=== PATIENT | female | born 1955 | race Caucasian/White ===

== ENCOUNTER 2016-05-04 09:37 | Emergency (ER) | payer BC ==
[2016-05-04 10:00] VITALS: BP 154/70
--- NOTE | 2016-05-04 10:24 | UC ---
Head Injury HPI - HPI Summary HPI Summary: SLIPPED ON THE ICE AND HIT THE BACK OF HER HEAD ON THE GROUND 2 DAYS AGO. GOT A LUMP ON THE BACK OF HER HEAD THAT IS NOW RESOLVED. NO LOC. DENIES ANY VISUAL CHANGES. NO NAUSEA, DIZZINESS, PHOTOPHOBIA OR CONFUSION. NO RAMESH. JUST THOUGHT SHE SHOULD COME GET IT CHECKED OUT. - History Of Current Complaint Chief Complaint: UCHeadInjury Stated Complaint: HEAD INJURY Time Seen by Provider: 05/04/16 09:53 Hx Obtained From: Patient Onset/Duration: Sudden Onset, Lasting Days, Resolved Severity Currently: None Severity Initially: Mild Pain Intensity: 0 Pain Scale Used: 0-10 Numeric Aggravating Factor(s): Nothing Alleviating Factor(s): Nothing Associated Signs And Symptoms: Positive: Negative - Allergies/Home Medications Allergies/Adverse Reactions: Allergies Allergy/AdvReac Type Severity Reaction Status Date / Time No Known Allergies Allergy Verified 09/10/13 12:57 Home Medications: Home Medications Wapyovy-Jebsticbwyfbw-Fsnbaurr [Excedrin Extra Strength 250-250-65 mg] 1 tab PO PRN 05/04/16 [History] PMH/Surg Hx/FS Hx/Imm Hx Endocrine History Of: Denies: Diabetes Cardiovascular History Of: Reports: Hypertension Denies: Congestive Heart Failure GI/ History Of: Reports: Kidney Stones - RT Cancer History Of: Denies: Breast Cancer - Surgical History Surgical History: Yes Surgery Procedure, Year, and Place: tubal ligation, carpal tunnel bilateral - Family History Known Family History: Positive: Cardiac Disease, Hypertension - Social History Alcohol Use: Weekly Substance Use Type: None Smoking Status (MU): Heavy Every Day Tobacco Smoker Type: Cigarettes Amount Used/How Often: 1/2 ppd Length of Time of Smoking/Using Tobacco: started at age 17 Have You Smoked in the Last Year: Yes Review of Systems Constitutional: Negative Eyes: Negative ENT: Negative Respiratory: Negative Cardiovascular: Negative Gastrointestinal: Negative Musculoskeletal: Negative Neurological: Negative All Other Systems Reviewed And Are Negative: Yes Physical Exam Triage Information Reviewed: Yes Appearance: Well-Appearing, No Pain Distress, Well-Nourished Vital Signs: Initial Vital Signs Temp 99.2 F 05/04/16 09:53 Pulse 91 05/04/16 09:53 Resp 16 05/04/16 09:53 BP 154/70 05/04/16 09:53 Pulse Ox 100 05/04/16 09:53 Vital Signs Reviewed: Yes Eyes: Positive: Conjunctiva Clear ENT: Positive: Hearing grossly normal, Pharynx normal, TMs normal Neck: Positive: Supple, Nontender, No Lymphadenopathy Respiratory Exam: Normal Cardiovascular Exam: Normal Abdomen Description: Positive: Soft Musculoskeletal: Positive: No Edema Neurological: Positive: Alert, Other: - CN II-XII GROSSLY INTACT BILATERALLY. NEG PRONATOR DRIFT. NEGATIVE ROMBERG. FINGER TO NOSE INTACT BILATERALLY. HEEL TO BLAND INTACT BILATERALLY. HEEL TO TOE INTACT BILATERALLY. RAPID ALTERNATING MVMTS INTACT. 5/5 STRENGTH Psychological: Positive: Age Appropriate Behavior Skin: Negative: rashes Head Injury Course/Dx - Course Course Of Treatment: NO CONCUSSIVE SX. NO ACUTE INTERVENTION REQUIRED. - Differential Dx/Diagnosis Provider Diagnoses: HEAD INJURY Discharge - Discharge Plan Condition: Stable Disposition: HOME Patient Education Materials: Head Injury (ED) Referrals: Willard Alvarado MD [Medical Doctor] - If Needed Additional Instructions: NO EVIDENCE OF CONCUSSIVE SYMPTOMS ON EXAM TODAY. NO NEED FOR ANY ACUTE INTERVENTION. GO TO THE ER WITHOUT FAIL IF YOU DEVELOP UNEQUAL PUPILS, VISUAL DISTURBANCE, GAIT INSTABILITY, SPEECH DIFFICULTY, NAUSEA/VOMITING, WORSENING HEADACHE, DIZZINESS, CONFUSION, WEAKNESS OR ANY OTHER CONCERNING SYMPTOMS.
== END 2016-05-04 10:35 | disposition home or self-care (01) ==
LOC: UCEAST 09:37
DX: S09.90XA Unspecified injury of head, initial encounter (principal); W00.0XXA Fall on same level due to ice and snow, initial encounter; Y93.9 Activity, unspecified; Y92.9 Unspecified place or not applicable; F17.210 Nicotine dependence, cigarettes, uncomplicated
CPT/HCPCS: 99211; G0463

== ENCOUNTER 2017-02-21 10:48 | Emergency (ER) | payer BC ==
[2017-02-21 11:06] VITALS: BP 162/63
--- NOTE | 2017-02-21 11:37 | UC ---
Throat Pain/Nasal Luke HPI - HPI Summary HPI Summary: Sore throat chills, ear plugged on off for 5 days - History of Current Complaint Chief Complaint: UCRespiratory Stated Complaint: SINUS COMPLAINT Time Seen by Provider: 02/21/17 11:31 Hx Obtained From: Patient ?: No Onset/Duration: Gradual Onset, Lasting Days - 5 Severity: Moderate Pain Intensity: 5 Cough: Nonproductive Associated Signs & Symptoms: Positive: Sinus Discomfort, Nasal Discharge - Allergies/Home Medications Allergies/Adverse Reactions: Allergies Allergy/AdvReac Type Severity Reaction Status Date / Time No Known Allergies Allergy Verified 02/21/17 10:56 Home Medications: Home Medications Wfgrdal-Dswvkdphjibzz-Gijohvxk [Excedrin Extra Strength 250-250-65 mg] 1 tab PO PRN 02/21/17 [History] PMH/Surg Hx/FS Hx/Imm Hx Previously Healthy: No Cardiovascular History: Hypertension - Surgical History Surgical History: Yes Surgery Procedure, Year, and Place: tubal ligation, carpal tunnel bilateral - Family History Known Family History: Positive: Cardiac Disease, Hypertension - Social History Occupation: Retired Lives: With Family Alcohol Use: Occasionally Substance Use Type: None Smoking Status (MU): Heavy Every Day Tobacco Smoker Type: Cigarettes Amount Used/How Often: 1/2 ppd Length of Time of Smoking/Using Tobacco: started at age 17 Have You Smoked in the Last Year: Yes Household Exposure Type: Cigarettes - Immunization History Most Recent Influenza Vaccination: NOV 2016 Review of Systems Constitutional: Negative Skin: Negative Eyes: Negative ENT: Sore Throat, Ear Ache, Nasal Discharge, Sinus Congestion Respiratory: Cough Cardiovascular: Negative Gastrointestinal: Negative Genitourinary: Negative Motor: Negative Neurovascular: Negative Musculoskeletal: Negative Neurological: Negative Psychological: Negative Is Patient Immunocompromised?: No All Other Systems Reviewed And Are Negative: Yes Physical Exam Triage Information Reviewed: Yes Appearance: Well-Appearing, No Pain Distress, Well-Nourished Vital Signs: Initial Vital Signs Temp 98.3 F 02/21/17 10:57 Pulse 79 02/21/17 10:57 Resp 18 02/21/17 10:57 BP 162/63 02/21/17 10:57 Pulse Ox 100 02/21/17 10:57 Vital Signs Reviewed: Yes Eye Exam: Normal Eyes: Positive: Conjunctiva Clear ENT Exam: Normal ENT: Positive: Normal ENT inspection, Hearing grossly normal, Pharynx normal, Nasal congestion, TMs normal - left, TM red - right, Sinus tenderness, Uvula midline. Negative: Tonsillar exudate, Trismus, Muffled voice, Hoarse voice Dental Exam: Normal Neck exam: Normal Neck: Positive: Supple, Nontender, No Lymphadenopathy Respiratory Exam: Normal Respiratory: Positive: Chest non-tender, Lungs clear, Normal breath sounds, No respiratory distress, No accessory muscle use Cardiovascular Exam: Normal Cardiovascular: Positive: RRR, No Murmur, Pulses Normal, Brisk Capillary Refill Musculoskeletal Exam: Normal Musculoskeletal: Positive: Strength Intact, ROM Intact, No Edema Neurological Exam: Normal Neurological: Positive: Alert, Muscle Tone Normal Psychological Exam: Normal Skin Exam: Normal Throat Pain/Nasal Course/Dx - Course Assessment/Plan: flonase amoxicillin, increase fluids follow with pcp - Differential Dx/Diagnosis Provider Diagnoses: Right otitis serrous, Hypertension in poor control Discharge - Discharge Plan Condition: Stable Disposition: HOME Prescriptions: Amoxicillin PO (*) [Amoxicillin 875 MG (*)] 875 mg PO BID #20 tab Fluticasone NASAL SPRAY 50MCG* [Flonase NASAL SPRAY 50MCG*] 2 spray BOTH NARES DAILY #1 btl Patient Education Materials: Hypertension (ED), Serous Otitis Media (ED) Referrals: [facility] [Outside] - 1 Week
== END 2017-02-21 12:09 | disposition home or self-care (01) ==
LOC: UCCORT 10:48
DX: H65.91 Unspecified nonsuppurative otitis media, right ear (principal); I10 Essential (primary) hypertension; F17.210 Nicotine dependence, cigarettes, uncomplicated
CPT/HCPCS: 99212; G0463

== ENCOUNTER 2018-06-10 08:59 | Emergency (ER) | payer BC ==
--- OUTSIDE RECORDS SUMMARY | 2018-06-10 09:15 | XMS REPORT | Continuity of Care Document ---
:1955 External Reference #:[id number] Author Name Zora Lopez Care Team Providers Name Role Phone Margarita Verma MD Primary Care Physician Unavailable Payers Date Identification Numbers Payment Provider Subscriber Policy Number: [id number] [employer]ets Sandy Carr PayID: [id number] [address] [address] [place] [address] Advance Directives Description No Information Available Problems Date Description Provider Status Onset: 05/19/2017 Essential hypertension Darryl Mcghee NP Active Family History Date Family Member(s) Observation Comments Father due to [place] () - at 39 Mother No Current Problems 82 Siblings 3 1 sister 2 brothers Social History Type Date Description Comments Sex Unknown Marital Status ETOH Use Currently consumes alcohol Tobacco Use Start: Unknown End: Patient is a former smoker Unknown Smoking Status Reviewed: 05/30/18 Patient is a former smoker Exercise Type/Frequency Exercises regularly Allergies, Adverse Reactions, Alerts Date Description Reaction Status Severity Comments 05/13/2017 Bee Sting Active Medications Medication Date Status Form Strength Qnty SIG Indications Ordering Provider Lisinopril 01/18/ Active Tablets 20mg 90tabs 1 03/29 by Darryl 2018 mouth every Taz, VOIP TECHNICIAN day D3 High / Active Capsules 2000Unit take one Unknown Potency 0000 capsule/tab let daily by mouth Aspirin / Active Tablets DR 81mg 1 by mouth Unknown 0000 every day Nicotine 11/17/ Hx Patches 14mg/24HR 14unit one patch F17.210 Darryl 2018 - 24HR s daily for 2 ABDIAZIZ Mcghee 2018 Nicotine 10/03/ Hx Patches 21mg/24HR 28unit one patch F17.210 Darryl 2018 - 24HR s daily x 6 ABDIAZIZ Mcghee 2017 Lisinopril 08/11/ Hx Tablets 10mg 90tabs 1 by mouth Darryl 2017 - every day ABDIAZIZ Mcghee 2017 Nicotrol 08/11/ Hx Inhaler 10mg 168uni one F17.210 Darryl 2018 - ts cartridge ABDIAZIZ Mcghee -16 times 2018 daily Immunizations CPT Code Status Date Vaccine Lot # [id number] Given 01/18/2018 Influenza Virus Vaccine, Quadrivalent, Split, [id number] Preservative Free Vital Signs Date Vital Result Comment 05/30/2018 9:43am Height 63.25 inches 5'3.25" Weight 159.50 lb Heart Rate 80 /min BP Systolic 163 mmHg 170/74 home cuff BP Diastolic 74 mmHg 170/74 home cuff BP Systolic Recheck 158 mmHg BP Diastolic Recheck 70 mmHg Body Temperature 98.1 F O2 % BldC Oximetry 98 % BMI (Body Mass Index) 28.0 kg/m2 02/15/2018 8:41am Height 63.25 inches 5'3.25" Weight 153.00 lb Heart Rate 90 /min BP Systolic 139 mmHg BP Diastolic 72 mmHg BP Systolic Recheck 126 mmHg Home cuff: 138/62 BP Diastolic Recheck 70 mmHg Home cuff: 138/62 O2 % BldC Oximetry 98 % BMI (Body Mass Index) 26.9 kg/m2 01/18/2018 8:28am Height 63.25 inches 5'3.25" Weight 150.00 lb Heart Rate 78 /min BP Systolic Sitting 156 mmHg home machine 176/75 BP Diastolic Sitting 75 mmHg home machine 176/75 BP Systolic Recheck 154 mmHg BP Diastolic Recheck 80 mmHg O2 % BldC Oximetry 98 % BMI (Body Mass Index) 26.4 kg/m2 11/17/2017 8:45am Height 63.25 inches 5'3.25" Weight 145.00 lb Heart Rate 73 /min BP Systolic Sitting 165 mmHg BP Diastolic Sitting 74 mmHg BP Systolic Recheck 155 mmHg BP Diastolic Recheck 80 mmHg O2 % BldC Oximetry 100 % BMI (Body Mass Index) 25.5 kg/m2 08/11/2017 9:31am Height 63.25 inches 5'3.25" Weight 141.75 lb Heart Rate 88 /min BP Systolic 120 mmHg BP Diastolic 64 mmHg Body Temperature 98.3 F O2 % BldC Oximetry 97 % BMI (Body Mass Index) 24.9 kg/m2 05/13/2017 10:58am Height 63.5 inches 5'3.50" Weight 150.50 lb Heart Rate 78 /min BP Systolic 140 mmHg BP Diastolic 72 mmHg BP Systolic Recheck 144 mmHg BP Diastolic Recheck 66 mmHg Body Temperature 98.2 F O2 % BldC Oximetry 98 % BMI (Body Mass Index) 26.2 kg/m2 08/04/2010 9:19am Height 64 inches 5'4" Weight 140.00 lb Heart Rate 70 /min BP Systolic 152 mmHg BP Diastolic 80 mmHg BMI (Body Mass Index) 24.0 kg/m2 Results Test Date Facility Test Result H/L Range Note Laboratory test 04/24/2018 [facility] Cytology SEE RESULT [address] [place] [address] [phone] Lipid Profile 08/02/2017 [facility] Triglycerides 49 mg/dL 2, 3 (Trig/Chol/HDL) [address] [place] [address] [phone] Cholesterol 265 mg/dL 4 HDL Cholesterol 97.6 mg/dL 5 LDL Cholesterol 158 mg/dL 6 Comp Metabolic Panel 08/02/2017 [facility] Sodium 139 mmol/L N 139-[address] [place] [address] [phone] Potassium 4.5 mmol/L N 3.5-5.0 Chloride 104 mmol/L N 101-111 Co2 Carbon Dioxide 27 mmol/L N 22-32 Anion Gap 8 mmol/L N 2-11 Glucose 101 mg/dL High 70-100 Blood Urea Nitrogen 18 mg/dL N 6-24 Creatinine 0.78 mg/dL N 0.51-0.95 BUN/Creatinine Ratio 23.1 High 8-20 Calcium 9.6 mg/dL N 8.6-10.3 Total Protein 6.9 g/dL N 6.4-8.9 Albumin 4.3 g/dL N 3.2-5.2 Globulin 2.6 g/dL N 2-4 Albumin/Globulin Ratio 1.7 N 1-3 Total Bilirubin 0.40 mg/dL N 0.2-1.0 Alkaline Phosphatase 71 U/L N 34-104 Alt 16 U/L N 7-52 Ast 15 U/L N 13-39 Egfr Non- 74.6 >60 Egfr 95.9 >60 7 Laboratory 08/02/2017 [facility] Hepatitis C Nonreactive Nonreactive 8 test [address] Antibody [place], [place] [id number] [phone] 1 SEE RESULT BELOW Name: SANDY CARR : [address]: Tabitha Her MD Acct: [id number] Unit: [id number] AGE: 62 Location: [facility] Re04/24/18 SEX: F Status: REG REF SPEC: [id number] LILIYA: 04/24/18 [facility] DR: Tabitha Her MD REQ: [id number] RECD: 04/24/18 STATUS: SULEMA BARBOZA DR: Darryl Mcghee VOIP TECHNICIAN _ ORDERED: TP IMAGE ANALYS, HPV/Thin Prep COMMENTS: [id number] Negative for Intraepithelial lesion or Malignancy Date Time Test Result Flag (u) Normal Range 04/24/18 0850 @ HPV RNA Negative Negative @ @ The high-risk HPV types detected by the assay include: 16, @ 18, 31, 33, 35, 39, 45, 51, 52, 56, 58, 59, 66, and 68. A. Ectocervical/Endocervical Specimen Adequacy: Satisfactory of evaluation Transformation zone component cannot be definitely identified due to presence of atrophy or other hormonal changes Patient Information: HPV: High risk HPV RNA testing regardless of pap results. Actual Specimen Date: 04/24/18 LMP If Unknown: 2006 Date of Last Specimen: 01/25/17 Post Menopausal?: Y Signed by and Reported on: ZAIN Alvaraod(ASCP) 1229 This Pap test was evaluated with the assistance of the CookItFor.UsPrep Test Imaging System. Due to cytologic findings at the watch crystal cutter microscope, comprehensive manual rescreening by a Cd Technician may be required. The Pap Smear is a screening test designed to aid in the detection of premalignant and malignant conditions of the uterine cervix. It is not a diagnostic procedure and should not be used as the sole means of detecting cervical cancer. Both false- positive and false- negative reports do occur. Depending on your risk status, a Pap smear should be obtained and evaluated every 1-3 years. END OF REPORT DEPARTMENT OF PATHOLOGY, [address] [place] [address] Alexei Vivas M.D. Director [facility] # [id number] 2 ASCVD 9.1%-rjz 3 Desirable: <150 Borderline High: 150-199 High: 200-499 Very High: >500 4 Desirable: <200 Borderline High: 200-239 High: >239 5 Low: <40 Desirable: 40-60 High: >60 6 Desirable: <100 Near Optimal: 100-129 Borderline High: 130-159 High: 160-189 Very High: >189 7 Because ethnic data is not always readily available, this report includes an eGFR for both -Americans and non- Americans. The National Kidney Disease Education Program (NKDEP) does not endorse the use of the MDRD equation for patients that are not between the ages of 18 and 70, are , have extremes of body size, muscle mass, or nutritional status, or are non- or non-. According to the National Kidney Foundation, irrespective of diagnosis, the stage of the disease is based on the level of kidney function: Stage Description GFR(mL/min/1.73 m(2)) 1 Kidney damage with normal or decreased GFR 90 2 Kidney damage with mild decrease in GFR 60-89 3 Moderate decrease in GFR 30-59 4 Severe decrease in GFR 15-29 5 Kidney failure <15 (or dialysis) 8 FASTING 10 HOUR Prior to PE in July Procedures Date Code Description Status 08/16/2017 55924596 Mammogram Completed 06/27/2015 [id number] Mammogram Completed 06/17/2015 [id number] Colonoscopy Completed 08/25/2010 19824 Rad Exam; Wrist Limited, 2 Views Completed 08/04/2010 20999 CLST TRMT Distal Radial FX Completed 06/06/2008 25148 Endoscopy Wrist Surg W/Release Of Transverse Carpal Completed Ligament 04/25/2008 41458 Endoscopy Wrist Surg W/Release Of Transverse Carpal Completed Ligament Encounters Type Date Location Provider Dx Diagnosis Office Visit 02/15/2018 [facility] Darryl Mcghee NP I10 Essential (primary ) 8:40a Medicine - hypertension [place] Office Visit 01/18/2018 [facility] Darryl Mcghee NP I10 Essential (primary ) 8:40a Medicine - hypertension [place] F17.210 Nicotine dependence, cigarettes, uncomplicated Z23 Encounter for immunization Office Visit 11/17/2017 8:40a [facility] Darryl Taz, F17.210 Nicotine Medicine - VOIP TECHNICIAN dependence, [place] cigarettes, uncomplicated I10 Essential (primary) hypertension Office Visit 08/11/2017 9:40a [facility] Darryl Mcghee, Z00.00 [facility] for Medicine - VOIP TECHNICIAN general adult [place] medical exam w/o abnormal findings I10 Essential (primary) hypertension E78.5 Hyperlipidemia, unspecified F17.210 Nicotine dependence, cigarettes, uncomplicated Z12.31 Encntr screen mammogram for malignant neoplasm of breast Office Visit 05/13/2017 11:00a [facility] Internal Darryl Mcghee, I10 Essential ( primary) Medicine - VOIP TECHNICIAN hypertension [place] Z13.220 Encounter for screening for lipoid disorders Z11.59 Encounter for screening for other viral diseases Office Visit 04/15/2008 3:00p [facility] Clarke Hinojosa 354.0 [facility] [place] Syndrome Plan of Treatment Future Appointment(s):08/08/2018 11:00 am - Darryl Mcghee NP at [facility]05/30/2018 - Darryl Mcghee NPI10 Essential (primary) hypertensionComments:Your blood pressure is elevated today. I have increased the lisinopril to 30mg. Take 1 1/2 tablets daily. Continue to check your blood pressure. Continue with the plan to go back to [employer]. Losing a little weight will likely lead to a reduction in your blood pressure,.Follow up:PE July
[2018-06-10 09:20] VITALS: BP 144/56
[2018-06-10] MEDS ORDERED: Fluorescein Sodium TOPICAL* 1 MG TEST STRIP OPHTHALMIC ONE (09:57)
--- NOTE | 2018-06-10 10:17 | UC ---
Eye Complaint HPI - HPI Summary HPI Summary: 62 yo female with FB sensation x 4 days Right eye has been rubbing her eye now with photophobia - History of Current Complaint Chief Complaint: UCEye Stated Complaint: EYE IRRITATION Time Seen by Provider: 06/10/18 09:51 Hx Obtained From: Patient Onset/Duration: Sudden Onset Timing: Constant Severity Initially: Mild Severity Currently: Moderate Pain Intensity: 0 Pain Scale Used: 0-10 Numeric Character: Foreign Body Sensation Associated Signs And Symptoms: Positive: Photophobia, Drainage (Clear) Eyes: 2 - flourscein staining defect 3 - FB under lower lid - Allergies/Home Medications Allergies/Adverse Reactions: Allergies Allergy/AdvReac Type Severity Reaction Status Date / Time No Known Allergies Allergy Verified 06/10/18 09:12 Home Medications: Home Medications Aspirin [Aspir-Low] 1 tab DAILY 06/10/18 [History Confirmed 06/10/18] PMH/Surg Hx/FS Hx/Imm Hx Previously Healthy: Yes Cardiovascular History: Hypertension - Surgical History Surgical History: Yes Surgery Procedure, Year, and Place: tubal ligation, carpal tunnel bilateral - Family History Known Family History: Positive: Cardiac Disease, Hypertension - Social History Alcohol Use: Occasionally Substance Use Type: None Smoking Status (MU): Former Smoker Type: Cigarettes Amount Used/How Often: 1/2 ppd Length of Time of Smoking/Using Tobacco: started at age 17 Have You Smoked in the Last Year: Yes When Did the Patient Quit Smoking/Using Tobacco: 10/23/17 Household Exposure Type: Cigarettes - Immunization History Most Recent Influenza Vaccination: NOV 2016 Review of Systems All Other Systems Reviewed And Are Negative: Yes Constitutional: Positive: Negative Skin: Positive: Negative Eyes: Positive: Eye Redness, Photophobia ENT: Positive: Negative Respiratory: Positive: Negative Cardiovascular: Positive: Negative Gastrointestinal: Positive: Negative Genitourinary: Positive: Negative Motor: Positive: Negative Neurovascular: Positive: Negative Musculoskeletal: Positive: Negative Neurological: Positive: Negative Psychological: Positive: Negative Physical Exam Triage Information Reviewed: Yes Appearance: Well-Appearing, No Pain Distress, Well-Nourished Vital Signs: Initial Vital Signs Temp 97.1 F 06/10/18 09:13 Pulse 74 06/10/18 09:13 Resp 16 06/10/18 09:13 BP 144/56 06/10/18 09:13 Pulse Ox 100 06/10/18 09:13 Vital Signs Reviewed: Yes Eyes: Positive: Conjunctiva Inflamed - R, Other: - see image ENT: Positive: Hearing grossly normal. Negative: Nasal congestion, Nasal drainage, Trismus, Muffled voice, Hoarse voice, Dental tenderness Neck: Positive: Supple Respiratory: Positive: Lungs clear, Normal breath sounds, No respiratory distress, No accessory muscle use Cardiovascular: Positive: RRR, No Murmur Musculoskeletal: Positive: No Edema Neurological: Positive: Alert Psychological Exam: Normal Skin Exam: Normal Procedures - Eye Procedure Right Eye FB Removal: removal w/ cotton swab - right lower lid Eye Complaint Course/Dx - Course Course Of Treatment: markedly improved after FB removed - Differential Dx/Diagnosis Provider Diagnosis: Corneal abrasion, right Discharge - Sign-Out/Discharge Documenting (check all that apply): Patient Departure All imaging exams completed and their final reports reviewed: No Studies - Discharge Plan Condition: Stable Disposition: HOME Prescriptions: Polymyx/Trimethoprim OPTH* [Polytrim OPHTH*] 1 - 2 drop RIGHT EYE QID #1 btl Patient Education Materials: Corneal Abrasion (ED) Referrals: Darryl Mcghee NP [Primary Care Provider] - Additional Instructions: see your eye doc in 2 days - Billing Disposition and Condition Condition: STABLE Disposition: Home
== END 2018-06-10 10:14 | disposition home or self-care (01) ==
LOC: UCCORT 08:59
DX: T15.11XA Foreign body in conjunctival sac, right eye, initial encounter (principal); X58.XXXA Exposure to other specified factors, initial encounter; Y92.9 Unspecified place or not applicable; I10 Essential (primary) hypertension; Z79.82 Long term (current) use of aspirin; Z87.891 Personal history of nicotine dependence
CPT/HCPCS: 67938; 99212; A9270-GY; G0463

== ENCOUNTER 2022-08-19 11:46 | Inpatient (IN) ==
[2022-08-20] MEDS ORDERED: Magnesium Hydroxide LIQ 30 ML UDC PO PRN (13:56)
[2022-08-20] MEDS ORDERED: Senna TAB 8.6 mg TAB PO PRN (13:56)
[2022-08-21] MEDS: Aspirin EC 81 mg TAB.EC (enteric coated) PO SCH (09:54)
[2022-08-21] MEDS: Cholecalciferol (VIT D3) 1,000 unit TAB PO SCH (09:54)
[2022-08-22] MEDS: Cholecalciferol (VIT D3) 1,000 unit TAB PO SCH (08:33)
[2022-08-22] MEDS: Aspirin EC 81 mg TAB.EC (enteric coated) PO SCH (08:33)
[2022-08-22 21:33] LABS: Urine Appearance Turbid; Urine Bilirubin Negative (Negative); Urine Blood 1+ (Negative); Urine Color Yellow; Urine Glucose Negative (Negative); Urine Ketones Negative (Negative); Urine Nitrite Negative (Negative); Urine Protein 1+(30 mg/dL) (Negative); Urine Specific Gravity 1.009 (1.002-1.030); Urine Urobilinogen Negative (Negative)
[2022-08-22 21:37] LABS: Urine Bacteria 3+ (Absent); Urine Red Blood Cell 2+(6-10/hpf) (Absent); Urine Squamous Epithelial Cell Present (Absent); Urine White Blood Cell 3+(>20/hpf) (Absent)
[2022-08-23 07:43] LABS: ALT 25 U/L (7-52); AST 19 U/L (13-39); Albumin/Globulin Ratio 1.1 (1-3); Alkaline Phosphatase 188 U/L (35-149); Anion Gap 5 mmol/L (2-16); Blood Urea Nitrogen 8 mg/dL (6-24); CO2 Carbon Dioxide 28 mmol/L (22-32); Calcium 9.1 mg/dL (8.6-10.3); Chloride 103 mmol/L (101-111); Globulin 2.8 g/dL (2-4); Glucose 119 mg/dL (70-100); Potassium 4.1 mmol/L (3.5-5.0); Sodium 136 mmol/L (135-145); Total Protein 5.8 g/dL (6.4-8.9)
[2022-08-23 08:52] LABS: Creatinine, Serum < 0.30 mg/dL (0.51-0.95); eGFR CKD-EPI 115.5 (>60)
[2022-08-23] MEDS: Cholecalciferol (VIT D3) 1,000 unit TAB PO SCH (08:56)
[2022-08-23] MEDS: Aspirin EC 81 mg TAB.EC (enteric coated) PO SCH (08:56)
[2022-08-23 09:08] LABS: ABS Basophils 0.1 10^3/uL (0.0-0.1); ABS Eosinophils 0.5 10^3/uL (0.0-0.5); ABS Lymphocytes 1.8 10^3/uL (1.0-4.8); ABS Monocytes 0.8 10^3/uL (0.0-0.9); ABS Neutrophils 4.4 10^3/uL (1.5-7.6); ABS Nucleated RBC 0.01 10^3/ul; Eosinophil % 6.4 %; Hematocrit 23.6 % (35-45); Hemoglobin 8.1 g/dL (11.5-14.3); Lymphocyte % 23.5 %; Mean Corpuscular Hgb Conc 34.5 g/dL (31-36); Mean Corpuscular Volume 92.7 fL (80-97); Mean Platelet Volume 7.2 fL (7.5-11.2); Nucleated Red Blood Cells % 0.1 /100 WBC (0.0-0.4); Platelet Count 347 10^3/uL (150-450); Red Blood Count 2.55 10^6/uL (3.63-4.92); Red Cell Distribution Width 18.1 % (12-17); White Blood Count 7.5 10^3/uL (3.8-11.8)
[2022-08-24] MEDS: Cholecalciferol (VIT D3) 1,000 unit TAB PO SCH (10:49)
[2022-08-24] MEDS: Aspirin EC 81 mg TAB.EC (enteric coated) PO SCH (10:49)
[2022-08-25] MEDS: Aspirin EC 81 mg TAB.EC (enteric coated) PO SCH (08:59)
[2022-08-25] MEDS: Cholecalciferol (VIT D3) 1,000 unit TAB PO SCH (09:00)
[2022-08-26] MEDS: Cholecalciferol (VIT D3) 1,000 unit TAB PO SCH (10:01)
[2022-08-26] MEDS: Aspirin EC 81 mg TAB.EC (enteric coated) PO SCH (10:01)
[2022-08-26] MEDS: Amoxicillin/Clavul 875/125 TAB (Augmentin 875 tab) PO SCH (21:03)
[2022-08-27] MEDS: Aspirin EC 81 mg TAB.EC (enteric coated) PO SCH (10:54)
[2022-08-27] MEDS: Amoxicillin/Clavul 875/125 TAB (Augmentin 875 tab) PO SCH (10:54)
[2022-08-27] MEDS: Cholecalciferol (VIT D3) 1,000 unit TAB PO SCH (10:54)
[2022-08-27] MEDS: Psyllium PAK PO SCH (11:06)
[2022-08-27] MEDS: Carbamide Peroxide 6.5% OTIC 15 ML BTL LEFT EAR SCH ×2 (14:22→22:01)
[2022-08-27] MEDS: Nitrofurantoin (monohydrate/macrocrystals) 100 mg CAP PO SCH (22:10)
[2022-08-28 08:20] LABS: ABS Basophils 0.1 10^3/uL (0.0-0.1); ABS Eosinophils 0.6 10^3/uL (0.0-0.5); ABS Lymphocytes 1.7 10^3/uL (1.0-4.8); ABS Monocytes 0.5 10^3/uL (0.0-0.9); ABS Neutrophils 3.3 10^3/uL (1.5-7.6); Hematocrit 26.4 % (35-45); Hemoglobin 9.3 g/dL (11.5-14.3); Lymphocyte % 27.7 %; Mean Corpuscular Hemoglobin 32.4 pg (27-33); Mean Corpuscular Hgb Conc 35.1 g/dL (31-36); Mean Corpuscular Volume 92.3 fL (80-97); Mean Platelet Volume 6.5 fL (7.5-11.2); Platelet Count 324 10^3/uL (150-450); Red Blood Count 2.86 10^6/uL (3.63-4.92); Red Cell Distribution Width 18.5 % (12-17); White Blood Count 6.2 10^3/uL (3.8-11.8)
[2022-08-28 08:37] LABS: ALT 20 U/L (7-52); AST 15 U/L (13-39); Albumin 3.3 g/dL (3.2-5.2); Albumin/Globulin Ratio 1.1 (1-3); Alkaline Phosphatase 156 U/L (35-149); Anion Gap 7 mmol/L (2-16); Blood Urea Nitrogen 5 mg/dL (6-24); CO2 Carbon Dioxide 25 mmol/L (22-32); Calcium 9.5 mg/dL (8.6-10.3); Chloride 104 mmol/L (101-111); Globulin 3.1 g/dL (2-4); Glucose 119 mg/dL (70-100); Potassium 3.8 mmol/L (3.5-5.0); Sodium 136 mmol/L (135-145); Total Protein 6.4 g/dL (6.4-8.9)
[2022-08-28 09:23] LABS: Creatinine, Serum < 0.30 mg/dL (0.51-0.95); eGFR CKD-EPI 115.5 (>60)
[2022-08-28] MEDS: Cholecalciferol (VIT D3) 1,000 unit TAB PO SCH (09:42)
[2022-08-28] MEDS: Nitrofurantoin (monohydrate/macrocrystals) 100 mg CAP PO SCH (09:42)
[2022-08-28] MEDS: Aspirin EC 81 mg TAB.EC (enteric coated) PO SCH (09:42)
[2022-08-28] MEDS ORDERED: Nitrofurantoin (monohydrate/macrocrystals) 100 mg CAP PO SCH (10:00)
[2022-08-28] MEDS: Psyllium PAK PO SCH (11:56)
[2022-08-28] MEDS: Carbamide Peroxide 6.5% OTIC 15 ML BTL LEFT EAR SCH ×2 (11:58→20:27)
[2022-08-28] MEDS: Ciprofloxacin 400mg IVPREMIX 400 MG/200 ML BAG IVPB SCH ×2 (13:23→23:38)
[2022-08-29] MEDS: Aspirin EC 81 mg TAB.EC (enteric coated) PO SCH (10:23)
[2022-08-29] MEDS: Cholecalciferol (VIT D3) 1,000 unit TAB PO SCH (10:23)
[2022-08-29] MEDS: Psyllium PAK PO SCH (10:24)
[2022-08-29] MEDS: Carbamide Peroxide 6.5% OTIC 15 ML BTL LEFT EAR SCH ×2 (10:24→21:24)
[2022-08-29] MEDS: Ciprofloxacin 400mg IVPREMIX 400 MG/200 ML BAG IVPB SCH ×2 (14:07→23:33)
[2022-08-30 06:52] LABS: ABS Basophils 0.1 10^3/uL (0.0-0.1); ABS Eosinophils 0.5 10^3/uL (0.0-0.5); ABS Lymphocytes 1.5 10^3/uL (1.0-4.8); ABS Monocytes 0.6 10^3/uL (0.0-0.9); ABS Neutrophils 4.2 10^3/uL (1.5-7.6); Eosinophil % 7.2 %; Hematocrit 25.3 % (35-45); Hemoglobin 8.8 g/dL (11.5-14.3); Mean Corpuscular Hemoglobin 32.3 pg (27-33); Mean Corpuscular Hgb Conc 34.9 g/dL (31-36); Mean Corpuscular Volume 92.6 fL (80-97); Mean Platelet Volume 6.8 fL (7.5-11.2); Nucleated Red Blood Cells % 0.1 /100 WBC (0.0-0.4); Platelet Count 335 10^3/uL (150-450); Red Blood Count 2.73 10^6/uL (3.63-4.92); Red Cell Distribution Width 18.9 % (12-17); White Blood Count 6.9 10^3/uL (3.8-11.8)
[2022-08-30 07:21] LABS: Albumin 3.1 g/dL (3.2-5.2); Calcium 9.4 mg/dL (8.6-10.3); Creatinine, Serum 0.36 mg/dL (0.51-0.95); Potassium 3.8 mmol/L (3.5-5.0); Total Bilirubin 0.3 mg/dL (0.2-1.0); Total Protein 6.1 g/dL (6.4-8.9); eGFR CKD-EPI 110.5 (>60)
[2022-08-30] MEDS ORDERED: Immune Globulin IV Order (CPOE ENTRY PROTOCOL) IV SCH (11:00)
[2022-08-30] MEDS: Cholecalciferol (VIT D3) 1,000 unit TAB PO SCH (13:02)
[2022-08-30] MEDS: Aspirin EC 81 mg TAB.EC (enteric coated) PO SCH (13:03)
[2022-08-30] MEDS: Psyllium PAK PO SCH (13:05)
[2022-08-30] MEDS: Ciprofloxacin 400mg IVPREMIX 400 MG/200 ML BAG IVPB SCH (13:06)
[2022-08-30] MEDS: Carbamide Peroxide 6.5% OTIC 15 ML BTL LEFT EAR SCH ×2 (15:50→20:18)
[2022-08-30] MEDS: [UNRECOGNIZED DRUG - MIXTURE] IV SCH (16:51)
[2022-08-31] MEDS: Ciprofloxacin 400mg IVPREMIX 400 MG/200 ML BAG IVPB SCH ×2 (00:02→14:45)
[2022-08-31] MEDS: Aspirin EC 81 mg TAB.EC (enteric coated) PO SCH (09:16)
[2022-08-31] MEDS: Cholecalciferol (VIT D3) 1,000 unit TAB PO SCH (09:16)
[2022-08-31] MEDS: Psyllium PAK PO SCH (09:17)
[2022-08-31] MEDS: Carbamide Peroxide 6.5% OTIC 15 ML BTL LEFT EAR SCH ×2 (16:17→20:33)
[2022-08-31] MEDS: [UNRECOGNIZED DRUG - MIXTURE] IV SCH (22:27)
[2022-09-01] MEDS: Ciprofloxacin 400mg IVPREMIX 400 MG/200 ML BAG IVPB SCH ×2 (00:02→11:51)
[2022-09-01] MEDS: Aspirin EC 81 mg TAB.EC (enteric coated) PO SCH (08:37)
[2022-09-01] MEDS: Cholecalciferol (VIT D3) 1,000 unit TAB PO SCH (08:37)
[2022-09-01] MEDS: Carbamide Peroxide 6.5% OTIC 15 ML BTL LEFT EAR SCH ×2 (08:43→20:55)
[2022-09-01] MEDS: Psyllium PAK PO SCH (08:47)
[2022-09-02] MEDS: Ciprofloxacin 400mg IVPREMIX 400 MG/200 ML BAG IVPB SCH ×2 (00:05→14:48)
[2022-09-02] MEDS ORDERED: Ondansetron ODT 4 mg TAB 4 MG TAB SL ONE (08:15)
[2022-09-02] MEDS: Carbamide Peroxide 6.5% OTIC 15 ML BTL LEFT EAR SCH ×2 (09:00→21:05)
[2022-09-02] MEDS: Aspirin EC 81 mg TAB.EC (enteric coated) PO SCH (13:03)
[2022-09-02] MEDS: Cholecalciferol (VIT D3) 1,000 unit TAB PO SCH (13:04)
[2022-09-02] MEDS: Psyllium PAK PO SCH (13:05)
[2022-09-03] MEDS: Ciprofloxacin 400mg IVPREMIX 400 MG/200 ML BAG IVPB SCH ×3 (00:30→23:45)
[2022-09-03] MEDS: Cholecalciferol (VIT D3) 1,000 unit TAB PO SCH (09:17)
[2022-09-03] MEDS: Aspirin EC 81 mg TAB.EC (enteric coated) PO SCH (09:17)
[2022-09-03] MEDS: Psyllium PAK PO SCH (10:05)
[2022-09-03] MEDS: Carbamide Peroxide 6.5% OTIC 15 ML BTL LEFT EAR SCH ×2 (10:05→22:05)
[2022-09-04] MEDS: Aspirin EC 81 mg TAB.EC (enteric coated) PO SCH (10:07)
[2022-09-04] MEDS: Cholecalciferol (VIT D3) 1,000 unit TAB PO SCH (10:07)
[2022-09-04] MEDS: Psyllium PAK PO SCH ×2 (10:08→10:23)
[2022-09-04] MEDS: Ciprofloxacin 400mg IVPREMIX 400 MG/200 ML BAG IVPB SCH (14:10)
[2022-09-04] MEDS: Carbamide Peroxide 6.5% OTIC 15 ML BTL LEFT EAR SCH ×2 (14:21→20:56)
[2022-09-05] MEDS ORDERED: Ondansetron ODT 4 mg TAB 4 MG TAB PO ONE (10:05)
[2022-09-05] MEDS: Aspirin EC 81 mg TAB.EC (enteric coated) PO SCH (11:19)
[2022-09-05] MEDS: Carbamide Peroxide 6.5% OTIC 15 ML BTL LEFT EAR SCH ×2 (11:23→21:02)
[2022-09-05] MEDS: Psyllium PAK PO SCH (11:24)
[2022-09-05] MEDS: Cholecalciferol (VIT D3) 1,000 unit TAB PO SCH (12:41)
[2022-09-06] MEDS: Ondansetron ODT 4 mg TAB 4 MG TAB PO PRN (04:58)
[2022-09-06 07:36] LABS: ABS Basophils 0.1 10^3/uL (0.0-0.1); ABS Eosinophils 0.1 10^3/uL (0.0-0.5); ABS Lymphocytes 1.4 10^3/uL (1.0-4.8); ABS Monocytes 0.4 10^3/uL (0.0-0.9); ABS Neutrophils 4.9 10^3/uL (1.5-7.6); Eosinophil % 1.7 %; Hematocrit 27.1 % (35-45); Hemoglobin 9.4 g/dL (11.5-14.3); Mean Corpuscular Hemoglobin 31.7 pg (27-33); Mean Corpuscular Hgb Conc 34.6 g/dL (31-36); Mean Corpuscular Volume 91.7 fL (80-97); Platelet Count 309 10^3/uL (150-450); Red Blood Count 2.96 10^6/uL (3.63-4.92); Red Cell Distribution Width 17.1 % (12-17); White Blood Count 6.9 10^3/uL (3.8-11.8)
[2022-09-06 07:46] LABS: Albumin 3.3 g/dL (3.2-5.2); Albumin/Globulin Ratio 0.7 (1-3); Calcium 9.5 mg/dL (8.6-10.3); Creatinine, Serum 0.47 mg/dL (0.51-0.95); Globulin 4.8 g/dL (2-4); Potassium 3.9 mmol/L (3.5-5.0); Total Bilirubin 0.5 mg/dL (0.2-1.0); Total Protein 8.1 g/dL (6.4-8.9); eGFR CKD-EPI 103.6 (>60)
[2022-09-06] MEDS: Cholecalciferol (VIT D3) 1,000 unit TAB PO SCH (10:12)
[2022-09-06] MEDS: Psyllium PAK PO SCH (10:12)
[2022-09-06] MEDS: Carbamide Peroxide 6.5% OTIC 15 ML BTL LEFT EAR SCH ×2 (10:12→21:46)
[2022-09-06] MEDS: Aspirin EC 81 mg TAB.EC (enteric coated) PO SCH (10:12)
[2022-09-07] MEDS: Psyllium PAK PO SCH (09:38)
[2022-09-07] MEDS: Carbamide Peroxide 6.5% OTIC 15 ML BTL LEFT EAR SCH ×2 (09:39→20:12)
[2022-09-07] MEDS: Aspirin EC 81 mg TAB.EC (enteric coated) PO SCH (09:39)
[2022-09-07] MEDS: Cholecalciferol (VIT D3) 1,000 unit TAB PO SCH (09:40)
[2022-09-07] MEDS: Ondansetron ODT 4 mg TAB 4 MG TAB PO PRN (14:52)
[2022-09-08] MEDS: Cholecalciferol (VIT D3) 1,000 unit TAB PO SCH (09:13)
[2022-09-08] MEDS: Aspirin EC 81 mg TAB.EC (enteric coated) PO SCH (09:13)
[2022-09-08] MEDS: Carbamide Peroxide 6.5% OTIC 15 ML BTL LEFT EAR SCH ×2 (09:36→20:51)
[2022-09-08] MEDS: Psyllium PAK PO SCH (09:37)
[2022-09-08] MEDS: Ondansetron ODT 4 mg TAB 4 MG TAB PO PRN (11:55)
[2022-09-09] MEDS: Cholecalciferol (VIT D3) 1,000 unit TAB PO SCH (07:43)
[2022-09-09] MEDS: Aspirin EC 81 mg TAB.EC (enteric coated) PO SCH (07:45)
[2022-09-09] MEDS: Psyllium PAK PO SCH (07:45)
[2022-09-09] MEDS: Carbamide Peroxide 6.5% OTIC 15 ML BTL LEFT EAR SCH ×2 (13:29→21:20)
[2022-09-10 07:03] LABS: Calcium 9.8 mg/dL (8.6-10.3); Creatinine, Serum 0.46 mg/dL (0.51-0.95); eGFR CKD-EPI 104.2 (>60)
[2022-09-10] MEDS: Cholecalciferol (VIT D3) 1,000 unit TAB PO SCH (09:20)
[2022-09-10] MEDS: Aspirin EC 81 mg TAB.EC (enteric coated) PO SCH (09:21)
[2022-09-10] MEDS: Carbamide Peroxide 6.5% OTIC 15 ML BTL LEFT EAR SCH ×2 (09:22→20:57)
[2022-09-10] MEDS: Psyllium PAK PO SCH (09:23)
[2022-09-10] MEDS: Ondansetron ODT 4 mg TAB 4 MG TAB PO PRN (09:38)
[2022-09-11] MEDS: Cholecalciferol (VIT D3) 1,000 unit TAB PO SCH (08:49)
[2022-09-11] MEDS: Psyllium PAK PO SCH (08:49)
[2022-09-11] MEDS: Aspirin EC 81 mg TAB.EC (enteric coated) PO SCH (08:49)
[2022-09-11] MEDS: Carbamide Peroxide 6.5% OTIC 15 ML BTL LEFT EAR SCH ×2 (08:58→21:49)
[2022-09-12] MEDS: Aspirin EC 81 mg TAB.EC (enteric coated) PO SCH (08:10)
[2022-09-12] MEDS: Cholecalciferol (VIT D3) 1,000 unit TAB PO SCH (08:10)
[2022-09-12] MEDS: Psyllium PAK PO SCH (08:13)
[2022-09-12] MEDS: Carbamide Peroxide 6.5% OTIC 15 ML BTL LEFT EAR SCH ×2 (09:13→20:08)
[2022-09-13 06:22] LABS: ABS Basophils 0.1 10^3/uL (0.0-0.1); ABS Eosinophils 0.2 10^3/uL (0.0-0.5); ABS Lymphocytes 1.5 10^3/uL (1.0-4.8); ABS Monocytes 0.5 10^3/uL (0.0-0.9); ABS Neutrophils 2.9 10^3/uL (1.5-7.6); Eosinophil % 3.3 %; Lymphocyte % 29.4 %; Mean Corpuscular Hemoglobin 31.6 pg (27-33); Mean Corpuscular Hgb Conc 34.3 g/dL (31-36); Mean Corpuscular Volume 92.1 fL (80-97); Mean Platelet Volume 7.5 fL (7.5-11.2); Nucleated Red Blood Cells % 0.1 /100 WBC (0.0-0.4); Platelet Count 362 10^3/uL (150-450); Red Blood Count 3.15 10^6/uL (3.63-4.92); Red Cell Distribution Width 16.6 % (12-17)
[2022-09-13 06:38] LABS: Albumin 3.5 g/dL (3.2-5.2); Albumin/Globulin Ratio 0.9 (1-3); Calcium 10.1 mg/dL (8.6-10.3); Creatinine, Serum 0.45 mg/dL (0.51-0.95); Total Bilirubin 0.4 mg/dL (0.2-1.0); Total Protein 7.5 g/dL (6.4-8.9); eGFR CKD-EPI 104.7 (>60)
[2022-09-13] MEDS: Aspirin EC 81 mg TAB.EC (enteric coated) PO SCH (08:49)
[2022-09-13] MEDS: Cholecalciferol (VIT D3) 1,000 unit TAB PO SCH (08:49)
[2022-09-13] MEDS: Psyllium PAK PO SCH (08:50)
[2022-09-13] MEDS: Carbamide Peroxide 6.5% OTIC 15 ML BTL LEFT EAR SCH ×2 (10:24→21:04)
[2022-09-14] MEDS: Cholecalciferol (VIT D3) 1,000 unit TAB PO SCH (07:37)
[2022-09-14] MEDS: Psyllium PAK PO SCH (07:37)
[2022-09-14] MEDS: Aspirin EC 81 mg TAB.EC (enteric coated) PO SCH (07:37)
[2022-09-14] MEDS: Ondansetron ODT 4 mg TAB 4 MG TAB PO PRN (09:15)
[2022-09-14] MEDS: Carbamide Peroxide 6.5% OTIC 15 ML BTL LEFT EAR SCH ×2 (09:35→21:23)
[2022-09-15] MEDS: Aspirin EC 81 mg TAB.EC (enteric coated) PO SCH (09:12)
[2022-09-15] MEDS: Cholecalciferol (VIT D3) 1,000 unit TAB PO SCH (09:13)
[2022-09-15] MEDS: Carbamide Peroxide 6.5% OTIC 15 ML BTL LEFT EAR SCH ×2 (09:41→22:03)
[2022-09-15] MEDS: Psyllium PAK PO SCH (09:41)
[2022-09-16] MEDS: Aspirin EC 81 mg TAB.EC (enteric coated) PO SCH (09:09)
[2022-09-16] MEDS: Cholecalciferol (VIT D3) 1,000 unit TAB PO SCH (09:10)
[2022-09-16] MEDS: Carbamide Peroxide 6.5% OTIC 15 ML BTL LEFT EAR SCH ×2 (09:12→21:27)
[2022-09-16] MEDS: Psyllium PAK PO SCH (09:13)
[2022-09-17] MEDS: Cholecalciferol (VIT D3) 1,000 unit TAB PO SCH (09:43)
[2022-09-17] MEDS: Carbamide Peroxide 6.5% OTIC 15 ML BTL LEFT EAR SCH ×2 (09:44→22:45)
[2022-09-17] MEDS: Aspirin EC 81 mg TAB.EC (enteric coated) PO SCH (09:44)
[2022-09-17] MEDS: Psyllium PAK PO SCH (09:45)
[2022-09-18] MEDS: Aspirin EC 81 mg TAB.EC (enteric coated) PO SCH (08:53)
[2022-09-18] MEDS: Cholecalciferol (VIT D3) 1,000 unit TAB PO SCH (08:58)
[2022-09-18] MEDS: Psyllium PAK PO SCH (10:40)
[2022-09-18] MEDS: Carbamide Peroxide 6.5% OTIC 15 ML BTL LEFT EAR SCH ×2 (10:40→20:54)
[2022-09-19] MEDS: Aspirin EC 81 mg TAB.EC (enteric coated) PO SCH (08:35)
[2022-09-19] MEDS: Cholecalciferol (VIT D3) 1,000 unit TAB PO SCH (08:35)
[2022-09-19] MEDS: Psyllium PAK PO SCH (08:36)
[2022-09-19] MEDS: Carbamide Peroxide 6.5% OTIC 15 ML BTL LEFT EAR SCH ×2 (08:49→21:24)
[2022-09-20] MEDS: Cholecalciferol (VIT D3) 1,000 unit TAB PO SCH (09:43)
[2022-09-20] MEDS: Aspirin EC 81 mg TAB.EC (enteric coated) PO SCH (09:44)
[2022-09-20] MEDS: Psyllium PAK PO SCH (09:50)
[2022-09-20] MEDS: Carbamide Peroxide 6.5% OTIC 15 ML BTL LEFT EAR SCH ×2 (09:50→21:29)
[2022-09-20 13:33] LABS: ABS Basophils 0.1 10^3/uL (0.0-0.1); ABS Eosinophils 0.1 10^3/uL (0.0-0.5); ABS Lymphocytes 1.3 10^3/uL (1.0-4.8); ABS Monocytes 0.6 10^3/uL (0.0-0.9); ABS Neutrophils 3.3 10^3/uL (1.5-7.6); ABS Nucleated RBC 0.01 10^3/ul; Hematocrit 33.3 % (35-45); Hemoglobin 11.2 g/dL (11.5-14.3); Lymphocyte % 24.2 %; Mean Corpuscular Hemoglobin 31.1 pg (27-33); Mean Corpuscular Hgb Conc 33.7 g/dL (31-36); Mean Corpuscular Volume 92.2 fL (80-97); Nucleated Red Blood Cells % 0.1 /100 WBC (0.0-0.4); Platelet Count 354 10^3/uL (150-450); Red Blood Count 3.61 10^6/uL (3.63-4.92); Red Cell Distribution Width 15.7 % (12-17); White Blood Count 5.3 10^3/uL (3.8-11.8)
[2022-09-20 13:48] LABS: Albumin 3.9 g/dL (3.2-5.2); Calcium 10.7 mg/dL (8.6-10.3); Creatinine, Serum 0.65 mg/dL (0.51-0.95); Globulin 3.9 g/dL (2-4); Potassium 4.3 mmol/L (3.5-5.0); Total Bilirubin 0.3 mg/dL (0.2-1.0); Total Protein 7.8 g/dL (6.4-8.9); eGFR CKD-EPI 95.8 (>60)
[2022-09-21] MEDS: Psyllium PAK PO SCH (10:03)
[2022-09-21] MEDS: Aspirin EC 81 mg TAB.EC (enteric coated) PO SCH (10:03)
[2022-09-21] MEDS: Cholecalciferol (VIT D3) 1,000 unit TAB PO SCH (10:03)
[2022-09-21] MEDS: Carbamide Peroxide 6.5% OTIC 15 ML BTL LEFT EAR SCH ×2 (10:05→21:35)
[2022-09-22] MEDS: Aspirin EC 81 mg TAB.EC (enteric coated) PO SCH (10:24)
[2022-09-22] MEDS: Cholecalciferol (VIT D3) 1,000 unit TAB PO SCH (10:24)
[2022-09-22] MEDS: Psyllium PAK PO SCH (10:27)
[2022-09-22] MEDS: Carbamide Peroxide 6.5% OTIC 15 ML BTL LEFT EAR SCH ×2 (12:14→20:52)
[2022-09-23] MEDS: Cholecalciferol (VIT D3) 1,000 unit TAB PO SCH (09:06)
[2022-09-23] MEDS: Aspirin EC 81 mg TAB.EC (enteric coated) PO SCH (09:06)
[2022-09-23] MEDS: Psyllium PAK PO SCH (09:08)
[2022-09-23] MEDS: Carbamide Peroxide 6.5% OTIC 15 ML BTL LEFT EAR SCH ×2 (09:11→21:18)
[2022-09-24] MEDS: Cholecalciferol (VIT D3) 1,000 unit TAB PO SCH (09:18)
[2022-09-24] MEDS: Psyllium PAK PO SCH (09:18)
[2022-09-24] MEDS: Aspirin EC 81 mg TAB.EC (enteric coated) PO SCH (09:19)
[2022-09-24] MEDS: Carbamide Peroxide 6.5% OTIC 15 ML BTL LEFT EAR SCH ×2 (09:20→20:36)
[2022-09-25] MEDS: Psyllium PAK PO SCH (09:42)
[2022-09-25] MEDS: Cholecalciferol (VIT D3) 1,000 unit TAB PO SCH (09:42)
[2022-09-25] MEDS: Aspirin EC 81 mg TAB.EC (enteric coated) PO SCH (09:43)
[2022-09-25] MEDS: Carbamide Peroxide 6.5% OTIC 15 ML BTL LEFT EAR SCH ×2 (10:16→21:01)
[2022-09-26] MEDS: Aspirin EC 81 mg TAB.EC (enteric coated) PO SCH (08:21)
[2022-09-26] MEDS: Cholecalciferol (VIT D3) 1,000 unit TAB PO SCH (08:21)
[2022-09-26] MEDS: Carbamide Peroxide 6.5% OTIC 15 ML BTL LEFT EAR SCH ×2 (09:48→22:14)
[2022-09-26] MEDS: Psyllium PAK PO SCH (09:48)
[2022-09-27] MEDS: Ondansetron ODT 4 mg TAB 4 MG TAB PO PRN (02:44)
[2022-09-27 07:06] LABS: ABS Basophils 0.1 10^3/uL (0.0-0.1); ABS Lymphocytes 1.4 10^3/uL (1.0-4.8); ABS Monocytes 0.5 10^3/uL (0.0-0.9); ABS Neutrophils 1.5 10^3/uL (1.5-7.6); ABS Nucleated RBC 0.01 10^3/ul; Eosinophil % 1.1 %; Hematocrit 30.9 % (35-45); Hemoglobin 10.6 g/dL (11.5-14.3); Lymphocyte % 39.3 %; Mean Corpuscular Hemoglobin 31.1 pg (27-33); Mean Corpuscular Hgb Conc 34.3 g/dL (31-36); Mean Corpuscular Volume 90.7 fL (80-97); Mean Platelet Volume 7.5 fL (7.5-11.2); Nucleated Red Blood Cells % 0.2 /100 WBC (0.0-0.4); Platelet Count 242 10^3/uL (150-450); Red Cell Distribution Width 14.7 % (12-17); White Blood Count 3.5 10^3/uL (3.8-11.8)
[2022-09-27 07:30] LABS: Albumin 3.4 g/dL (3.2-5.2); Albumin/Globulin Ratio 0.7 (1-3); Calcium 10.2 mg/dL (8.6-10.3); Creatinine, Serum 0.57 mg/dL (0.51-0.95); Globulin 5.1 g/dL (2-4); Potassium 4.6 mmol/L (3.5-5.0); Total Bilirubin 0.4 mg/dL (0.2-1.0); Total Protein 8.5 g/dL (6.4-8.9); eGFR CKD-EPI 98.9 (>60)
[2022-09-27] MEDS: Cholecalciferol (VIT D3) 1,000 unit TAB PO SCH (09:11)
[2022-09-27] MEDS: Aspirin EC 81 mg TAB.EC (enteric coated) PO SCH (09:59)
[2022-09-27] MEDS: Psyllium PAK PO SCH (10:02)
[2022-09-27] MEDS: Carbamide Peroxide 6.5% OTIC 15 ML BTL LEFT EAR SCH ×2 (10:02→22:03)
[2022-09-27 13:07] LABS: Immunoglobulin A 119 mg/dL (61 - 356); Immunoglobulin G 4530 mg/dL (767 - 1590); Immunoglobulin M 16 mg/dL (37 - 286)
[2022-09-28] MEDS: Carbamide Peroxide 6.5% OTIC 15 ML BTL LEFT EAR SCH ×2 (10:42→21:32)
[2022-09-28] MEDS: Cholecalciferol (VIT D3) 1,000 unit TAB PO SCH (10:42)
[2022-09-28] MEDS: Psyllium PAK PO SCH (10:42)
[2022-09-28] MEDS: Aspirin EC 81 mg TAB.EC (enteric coated) PO SCH (10:42)
[2022-09-29] MEDS: Ondansetron ODT 4 mg TAB 4 MG TAB PO PRN (07:16)
[2022-09-29] MEDS: Cholecalciferol (VIT D3) 1,000 unit TAB PO SCH (09:50)
[2022-09-29] MEDS: Carbamide Peroxide 6.5% OTIC 15 ML BTL LEFT EAR SCH ×2 (09:51→21:53)
[2022-09-29] MEDS: Psyllium PAK PO SCH (09:51)
[2022-09-29] MEDS: Aspirin EC 81 mg TAB.EC (enteric coated) PO SCH (09:51)
[2022-09-30] MEDS: Psyllium PAK PO SCH (09:41)
[2022-09-30] MEDS: Aspirin EC 81 mg TAB.EC (enteric coated) PO SCH (09:42)
[2022-09-30] MEDS: Cholecalciferol (VIT D3) 1,000 unit TAB PO SCH (09:42)
[2022-09-30] MEDS: Carbamide Peroxide 6.5% OTIC 15 ML BTL LEFT EAR SCH ×2 (09:43→21:43)
[2022-10-01] MEDS: Aspirin EC 81 mg TAB.EC (enteric coated) PO SCH (08:26)
[2022-10-01] MEDS: Ondansetron ODT 4 mg TAB 4 MG TAB PO PRN (08:26)
[2022-10-01] MEDS: Cholecalciferol (VIT D3) 1,000 unit TAB PO SCH (08:26)
[2022-10-01] MEDS: Carbamide Peroxide 6.5% OTIC 15 ML BTL LEFT EAR SCH ×2 (12:52→21:32)
[2022-10-01] MEDS: Psyllium PAK PO SCH (12:52)
[2022-10-02] MEDS: Cholecalciferol (VIT D3) 1,000 unit TAB PO SCH (08:57)
[2022-10-02] MEDS: Aspirin EC 81 mg TAB.EC (enteric coated) PO SCH (08:58)
[2022-10-02] MEDS: Psyllium PAK PO SCH (08:58)
[2022-10-02] MEDS: Carbamide Peroxide 6.5% OTIC 15 ML BTL LEFT EAR SCH ×2 (09:09→20:55)
[2022-10-03] MEDS: Aspirin EC 81 mg TAB.EC (enteric coated) PO SCH (10:10)
[2022-10-03] MEDS: Cholecalciferol (VIT D3) 1,000 unit TAB PO SCH (10:10)
[2022-10-03] MEDS: Psyllium PAK PO SCH (10:11)
[2022-10-03] MEDS: Carbamide Peroxide 6.5% OTIC 15 ML BTL LEFT EAR SCH ×2 (10:21→21:22)
[2022-10-04 06:22] LABS: ABS Basophils 0.1 10^3/uL (0.0-0.1); ABS Eosinophils 0.1 10^3/uL (0.0-0.5); ABS Lymphocytes 1.4 10^3/uL (1.0-4.8); ABS Monocytes 0.3 10^3/uL (0.0-0.9); ABS Neutrophils 2.1 10^3/uL (1.5-7.6); ABS Nucleated RBC 0.01 10^3/ul; Eosinophil % 1.3 %; Hematocrit 28.5 % (35-45); Lymphocyte % 35.9 %; Mean Corpuscular Hemoglobin 31.2 pg (27-33); Mean Corpuscular Hgb Conc 35.1 g/dL (31-36); Mean Platelet Volume 7.8 fL (7.5-11.2); Nucleated Red Blood Cells % 0.1 /100 WBC (0.0-0.4); Platelet Count 237 10^3/uL (150-450); Red Blood Count 3.21 10^6/uL (3.63-4.92); Red Cell Distribution Width 14.5 % (12-17)
[2022-10-04 06:59] LABS: Albumin 3.6 g/dL (3.2-5.2); Albumin/Globulin Ratio 0.9 (1-3); Calcium 10.2 mg/dL (8.6-10.3); Creatinine, Serum 0.57 mg/dL (0.51-0.95); Potassium 4.2 mmol/L (3.5-5.0); Total Bilirubin 0.4 mg/dL (0.2-1.0); Total Protein 7.6 g/dL (6.4-8.9); eGFR CKD-EPI 98.9 (>60)
[2022-10-04] MEDS: Cholecalciferol (VIT D3) 1,000 unit TAB PO SCH (09:45)
[2022-10-04] MEDS: Aspirin EC 81 mg TAB.EC (enteric coated) PO SCH (09:46)
[2022-10-04] MEDS: Carbamide Peroxide 6.5% OTIC 15 ML BTL LEFT EAR SCH ×2 (09:48→21:59)
[2022-10-04] MEDS: Psyllium PAK PO SCH (09:49)
[2022-10-05 04:31] VITALS: BP 138/53
[2022-10-05] MEDS: Cholecalciferol (VIT D3) 1,000 unit TAB PO SCH (09:11)
[2022-10-05] MEDS: Aspirin EC 81 mg TAB.EC (enteric coated) PO SCH (09:12)
[2022-10-05] MEDS: Psyllium PAK PO SCH (09:18)
[2022-10-05] MEDS: Carbamide Peroxide 6.5% OTIC 15 ML BTL LEFT EAR SCH (09:18)
[2022-10-05] MEDS: Ondansetron ODT 4 mg TAB 4 MG TAB PO PRN (11:30)
== END 2022-10-05 11:30 | disposition home or self-care (01) | DRG 74 ==
LOC: PMRU 08-20 12:52
PROVIDERS: ADMIT Physical Medicine & Rehabilitation; ATTEND Physical Medicine & Rehabilitation